=== PATIENT | female | born 1985 ===

== ENCOUNTER → 2020-11-21 08:17 | Outpatient (CLI) | payer OTHER | END | disposition home or self-care (01) | LOC: LAB 08:17 | PROVIDERS: ATTEND Internal Medicine | DX: M40.00 Postural kyphosis, site unspecified (principal) ==

== ENCOUNTER 2020-11-21 09:49 | Outpatient (CLI) | payer OTHER | END 2020-11-21 09:54 | disposition home or self-care (01) | LOC: RAD 09:49 | PROVIDERS: ATTEND Internal Medicine | DX: G43.919 Migraine, unspecified, intractable, without status migrainosus (principal) ==

== ENCOUNTER 2021-09-18 14:28 | Outpatient (CLI) | payer OTHER | END 2021-09-18 14:38 | disposition home or self-care (01) | LOC: MAMO-SONO 14:28 | PROVIDERS: ATTEND Internal Medicine | DX: N64.0 Fissure and fistula of nipple (principal); N63.0 Unspecified lump in unspecified breast; E04.2 Nontoxic multinodular goiter ==

== ENCOUNTER 2022-01-25 07:17 | Day surgery (SDC) | payer OTHER ==
[~2022-01-25] VITALS: Ht 166.4 cm; Wt 59.9 kg
== END 2022-01-25 16:15 | disposition home or self-care (01) ==
LOC: CIR.AMB 07:17 → AMB-ENDOS 13:30 → CIR.AMB 16:15
PROVIDERS: ATTEND Surgery
DX: D24.1 Benign neoplasm of right breast (principal); Z86.16 Personal history of COVID-19; F12.90 Cannabis use, unspecified, uncomplicated; G43.909 Migraine, unspecified, not intractable, without status migrainosus
CPT/HCPCS: 19301; 19281; L8699